=== PATIENT | male | born 1980 | race Caucasian/White ===

== ENCOUNTER 2019-09-04 14:20 | Outpatient (CLI) | payer BC, SELFPAY ==
[2019-09-04 21:12] LABS: Volume Semen 2 (2-5)
[2019-09-04 21:13] LABS: PH Semen 10 (7.0-8.0); Sperm Non-Progressive Motility 10 % (5-10); Sperm Progressive Motility 30 % (31-34); Viscosity Semen High Viscosity
[2019-09-04 21:14] LABS: Sperm Immotility 60 % (50-60); White Blood Count Semen 12 /hpf
[2019-09-04 22:08] LABS: Side 1 41
[2019-09-04 22:09] LABS: Side 2 38
[2019-09-04 22:48] LABS: Pathology Referral Yes
== END 2019-09-04 14:21 | disposition home or self-care (01) ==
LOC: LAB 14:23
PROVIDERS: PCP Nurse Practitioner; Visit Provider Obstetrics & Gynecology
DX: N46.9 Male infertility, unspecified (principal)
CPT/HCPCS: 80500; 89320

== ENCOUNTER → 2020-07-31 11:15 | Outpatient (BNVA) | payer OTHER, SELFPAY | PROVIDERS: PCP Nurse Practitioner; Visit Provider Surgery | DX: Z86.010 Personal history of colon polyps (principal) | CPT/HCPCS: 87635 ==

== ENCOUNTER 2020-08-06 07:05 | Day surgery (SDC) | payer OTHER, SELFPAY ==
[2020-08-02 10:52] VITALS: BMI 26.4
[2020-08-06 07:22] VITALS: BP 127/84; PULSE 88; RESP 16; TEMP 36.5; O2SAT 98
[2020-08-06] MEDS: sodium chloride 0.9% 1,000 ML 30 ML IV (07:31)
--- NOTE | 2020-08-06 08:06 | ANES.PREANE2 ---
Pre-Anesthetic Assessment Pre-Anesthetic Assessment: Height/Weight: Height 1.83 m Weight 88.451 kg Temp Pulse Resp BP Pulse Ox 97.7 F 88 16 127/84 98 08/06/20 07:22 08/06/20 07:22 08/06/20 07:22 08/06/20 07:22 08/06/20 07:22 Preop Diagnosis: diagnostic Proposed Procedure: Operation Date: 08/06/20 08:00 Proposed Procedures p Colonoscopy 58983 z86.010(Not Applicable) - Man Antonio MD Was Beta Mili taken within 24 hours: Yes Was Clonidine taken within 24 hours: N/A Last intake: Intake Last Liquid Date 08/05/20 Last Liquid Time 23:00 Last Solid Date 08/04/20 Last Solid Time 23:59 Social: Social History: Tobacco Exam: Pre-Anes Outpt Exam: alert, oriented x 3, clear to auscultation bilaterally and regular rate & rhythm Airway: Submandibular: WNL Cervical ROM: WNL MP: 2 Additional comments: some missing History/ROS: No significant history except as noted and No significant complaints Pulmonary: Pulmonary: None reported CV/HEM: CV/HEM: HTN : : None reported Hepatic: Hepatic: None reported GI: GI: None reported Metabolic: Comments: Hx pancreatitis Musc/skel: Musc/skel: None reported Neuropsych: Neuropsych: None reported Anesthetic Plan: ASA status: 2 Anesthesia: MAC Risk of > 500 ml blood loss (7ml/kg in children): No Meds/Allergies Current Medications: Current Medications Generic Name Dose Route Start Last Admin Trade Name Freq PRN Reason Stop Dose Admin Sodium Chloride 1,000 mls @ 30 ml s/hr 08/06/20 07:15 08/06/20 07:31 Sodium Chloride 0.9% IV 08/07/20 07:14 30 mls/hr .Q24H DONTA Administration PFSH Anesthesia PFSH: Medical History (Updated 07/16/20 @ 16:06 by Man Antonio MD) Chronic migraine History of colon polyps HTN, goal below 130/80 Mixed anxiety and depressive disorder Necrotizing pancreatitis Surgical History History of cholecystectomy History of colonoscopy 2018 Family History Other Asthma Hypertension Denies family history of Anesthesia complication Bleeding disorder Social History Smoking and tobacco status: current every day smoker Second hand smoke exposure: Yes Smoking risk assessment/counseling performed?: Yes Alcohol intake: never Desire information about alcohol rehabilitation?: No Counseling given: No Desire information about substance/drug rehabilitation?: No Counseling given: No Adopted: No Caregiver/support person: No Lives independently: Yes Household members: spouse Housing: House Marital status: Number of children: 0 service: No Current occupational status: employed Current occupation: [employer] History of recent travel: No Current gender identity: Male Data Anesthesia Cardiac Studies: No Data to Display
[2020-08-06 08:42] VITALS: BP 100/76; PULSE 83; RESP 20; TEMP 36.8; O2SAT 98
--- NOTE | 2020-08-06 08:44 | W.PM.OPSUD ---
Surgery/Procedure H&P Update DATE OF PROCEDURE: August 06, 2020 DATE H&P PERFORMED: 07/16/20 H&P UPDATE INFORMATION: I have reviewed H&P completed within last 30 days, I have examined patient prior to procedure and No changes to prior documentation PREOP DIAGNOSIS: diagnostic PLANNED PROCEDURE: Operation Date: 08/06/20 08:00 Proposed Procedures p Colonoscopy 97552 z86.010(Not Applicable) - Man Antonio MD
[2020-08-06 08:57] VITALS: BP 121/96; PULSE 74; RESP 16; TEMP 36.7; O2SAT 99
--- NOTE | 2020-08-06 12:04 | ANE.PACU2 ---
Inpatient post-anesthesia follow up: Airway intact: Yes Vital signs: Temperature 98.1 F Pulse Rate 74 Respiratory Rate 16 Blood Pressure 121/96 Pulse Oximetry 99 Oxygen Delivery Me thod Room Air Oxygen Flow Rate 3 Fraction of Inspir ed Oxygen Hydration adequate: Yes Nausea and vomiting: No Pain level: 2 Mental status: Baseline
== END 2020-08-06 09:20 | disposition home or self-care (01) ==
PROVIDERS: PCP Nurse Practitioner; Visit Provider Surgery
PROC: 0DJD8ZZ Inspection of Lower Intestinal Tract, Via Natural or Artificial Opening Endoscopic (ICD-10-PCS; CPT 45378; principal; 2020-08-06 08:00)
DX: Z86.010 Personal history of colon polyps (principal); F17.210 Nicotine dependence, cigarettes, uncomplicated; K52.9 Noninfective gastroenteritis and colitis, unspecified; K64.8 Other hemorrhoids; I10 Essential (primary) hypertension
CPT/HCPCS: 45378; 83630; 87493; 87506; 96360; 96361; J2704; J7030

== ENCOUNTER → 2020-11-05 11:46 | Outpatient (BNVA) | payer SELFPAY | PROVIDERS: PCP Nurse Practitioner; Visit Provider Dermatology | DX: Z01.89 Encounter for other specified special examinations (principal) ==

== ENCOUNTER → 2021-04-29 11:08 | Outpatient (BNVA) | payer SELFPAY | PROVIDERS: PCP Nurse Practitioner; Visit Provider Dermatology | DX: Z01.89 Encounter for other specified special examinations (principal) ==

== ENCOUNTER → 2021-10-28 10:38 | Outpatient (BNVA) | payer SELFPAY | PROVIDERS: PCP Nurse Practitioner; Visit Provider Dermatology | DX: Z01.89 Encounter for other specified special examinations (principal) ==

== ENCOUNTER → 2023-02-04 17:01 | Outpatient (BNVA) | payer OTHER, SELFPAY | PROVIDERS: PCP Nurse Practitioner; Visit Provider Nurse Practitioner | DX: I10 Essential (primary) hypertension (principal) | CPT/HCPCS: 80053; 80061 ==

== ENCOUNTER → 2023-08-03 16:58 | Outpatient (BNVA) | payer OTHER, SELFPAY | PROVIDERS: PCP Nurse Practitioner; Visit Provider Nurse Practitioner | DX: K85.91 Acute pancreatitis with uninfected necrosis, unspecified (principal); I10 Essential (primary) hypertension | CPT/HCPCS: 80053; 82150; 83690; 85025 ==

== ENCOUNTER → 2023-10-19 16:44 | Outpatient (BNVA) | payer OTHER, SELFPAY | PROVIDERS: PCP Nurse Practitioner; Visit Provider Nurse Practitioner | DX: I10 Essential (primary) hypertension (principal) | CPT/HCPCS: 80053; 80061 ==

== ENCOUNTER 2023-10-20 19:20 | Emergency (ER) | payer OTHER, SELFPAY ==
[2023-10-20 19:24] VITALS: BP 147/98; PULSE 78; RESP 22; TEMP 36.5; O2SAT 97
--- NOTE | 2023-10-20 20:17 | ED_ITS ---
HPI - Dizziness 2 General: Chief Complaint: Dizziness Stated Complaint: Joints Hurt\Dizzy Time Seen by Provider: 10/20/23 19:54 History of Present Illness: HPI Narrative: 43-year-old man who presents emergency r oom with feelings of agitation, dizziness, joint aches. He currently takes varenicline for smoking cessation. He was started on naltrexone daily apparently for OCD/ADHD. He says after taking it today he started having these feelings. He also is having some diarrhea. He appears to be having withdrawal symptoms. He says he does not take any other medications other than he started an jxfy-itb-peacpbo type medication yesterday as well. says that it has opioid properties when she lifted up. The medication was called [employer]m. And will have an opioid withdrawal syndrome Review of Systems 2 Narrative: Constitutional symptoms: Negative except as documented in HPI. Skin symptoms: Negative except as documented in HPI. Eye symptoms: Negative except as documented in HPI. ENMT symptoms: Negative except as documented in HPI. Respiratory symptoms: Negative except as documented in HPI. Cardiovascular symptoms: Negative except as documented in HPI. Gastrointestinal symptoms: Negative except as documented in HPI. Genitourinary symptoms: Negative except as documented in HPI. Musculoskeletal symptoms: Negative except as documented in HPI. Neurologic symptoms: Negative except as documented in HPI. Psychiatric symptoms: Negative except as documented in HPI. Endocrine symptoms: Negative except as documented in HPI. PFSH ED 2 PFSH: Medical History Necrotizing pancreatitis 2018 at [facility] History of colon polyps Chronic migraine HTN, goal below 130/80 Mixed anxiety and depressive disorder Surgical History History of cholecystectomy History of colonoscopy (08/06/20) 2018, 2020; due 2030 Family History Father Liver cancer Other Asthma Hypertension Denies family history of Anesthesia complication Bleeding disorder Social History Smoking and tobacco/nicotine status: current every day tobacco/nicotine user Second hand smoke exposure: Yes Alcohol intake: never Substance/Drug Use: unknown Adopted: No Caregiver/support person: No Lives independently: Yes Household members: spouse Housing: House Marital status: Number of children: 0 service: No Current occupational status: employed Current occupation: [employer] Do you think of yourself as: Straight/Heterosexual Current gender identity: Male Physical Exam 2 Narrative: EXAM NARRATIVE: General: Alert, no acute distress. Skin: Warm, dry. Head: Normocephalic, atraumatic. Neck: Supple, trachea midline. Eye: Extraocular movements are intact. Ears, nose, mouth and throat: mucosa moist. Cardiovascular: Regular, Normal peripheral perfusion. Respiratory: Lungs are clear to auscultation, respirations are non-labored, breath sounds are equal, Symmetrical chest wall expansion. Gastrointestinal: Soft, Nontender, Non distended, Normal bowel sounds. Musculoskeletal: Normal ROM, no deformity. Neurological: Alert and oriented, No focal neurological deficit observed. Psychiatric: Cooperative, patient appears quite agitated. He walks around the room and when he lays on the bed he kicks his legs around. Course 2 Vital Signs: Vital signs: Vital Signs Temperature 97.7 F 10/20/23 19:24 Pulse Rate 71 10/20/23 21:58 Respiratory Rate 16 10/20/23 20:38 Blood Pressure 147/98 10/20/23 19:24 Pulse Oximetry 98 10/20/23 21:58 Oxygen Delivery Me thod Room Air 10/20/23 21:58 MDM - Dizziness Medical Decision Making Medical decision making: Differential diagnosis including but not limited to and based on the above HPI, review of systems and physical exam: Make this most likely a reaction to the naltrexone. Perhaps interacting with the other medication he just started. Basic lab work and a urinalysis with a drug screen were ordered. Orders placed to evaluate differential diagnosis based on the above differential, HPI and physical exam Lab Review: Laboratory results were reviewed and interpreted by myself the emergency room physician. Lab work is unremarkable. Mild leukocytosis with a white count of 12. Hemoglobin is 14. BUN and creatinine are normal at 12 and 1.0. Urinalysis is negative and urine drug screen are negative. Alcohol level is negative. Kratom can have withdrawal symptoms similar to opioid withdrawal. Naloxone is of course normally used for opiate overdose. But also can be used for ADHD. I think it is going on today is a combination of the medication he is taken and what he is just prescribed. I reviewed the patient's medical record. Reexamination: Patient remains a little bit agitated so gave him some more Ativan and some Geodon. Hopefully can go home and sleep this off. Vitals are normal. Assessment and plan: Adverse medication reaction ?Normal saline bolus, Ativan x 2 1 mg doses. 20 mg IM Geodon. - Discharged home - Discussed plan with patient. Answered any questions. - Evaluation and treatment of this problem were appropriate in the emergency setting. Lab Data 10/20/23 20:21 10/20/23 20:21 Laboratory Results WBC 12.13 10^3/uL (3.29-11.43) H 10/20/23 20:21 RBC 4.74 10^6/uL (3.85-5.65) 10/20/23 20:21 Hgb 14.10 g/dL (11.27-16.99) 10/20/23 20:21 Hct 42.0 % (37-53) 10/20/23 20:21 MCV 88.6 fl (82-101) 10/20/23 20:21 MCH 29.7 pg (27-33) 10/20/23 20:21 MCHC 33.6 g/dL (30-55) 10/20/23 20:21 RDW 11.9 % (12.1-15.1) L 10/20/23 20:21 Plt Count 213 10^3/cmm (157-399) 10/20/23 20:21 MPV 9.6 fL (7.4-10.4) 10/20/23 20:21 Neut % (Auto) 67.7 % 10/20/23 20:21 Lymph % (Auto) 22.8 % 10/20/23 20:21 [place] % (Auto) 7.4 % 10/20/23 20:21 Eos % (Auto) 1.6 % 10/20/23 20:21 Baso % (Auto) 0.3 % 10/20/23 20:21 Neut # (Auto) 8.20 10^3/uL (1.8-7.7) H 10/20/23 20:21 Lymph # (Auto) 2.8 10^3/uL (0.8-4.8) 10/20/23 20:21 [place] # (Auto) 0.9 10^3/uL (0.2-0.9) 10/20/23 20:21 Eos # (Auto) 0.2 10^3/uL (0.0-0.8) 10/20/23 20:21 Baso # (Auto) 0.0 10^3/uL (0.0-0.1) 10/20/23 20:21 Nucleated RBC % (auto) 0 % 10/20/23 20:21 Nucleated RBCs # 0.0 /100WBC 10/20/23 20:21 Sodium 141 mmol/L (136-145) 10/20/23 20:21 Potassium 3.9 mmol/L (3.5-5.1) 10/20/23 20:21 Chloride 102 mmol/L (98-107) 10/20/23 20:21 Carbon Dioxide 27 mmol/L (22-29) 10/20/23 20:21 Anion Gap 15.9 (5-19) 10/20/23 20:21 BUN 12 mg/dL (6-20) 10/20/23 20:21 Creatinine 1.0 mg/dL (0.7-1.2) 10/20/23 20:21 GFR Calculation 82.3 mL/min (90-130) L 10/20/23 20:21 Glucose 80 mg/dL (65-115) 10/20/23 20:21 Calculated Osmolality 291 mOsm/kg (285-295) 10/20/23 20:21 Calcium 8.6 mg/dL (8.5-10.5) 10/20/23 20:21 Total Bilirubin 0.3 mg/dL (0.15-1.2) 10/20/23 20:21 AST 15 U/L (0-40) 10/20/23 20:21 ALT 13 U/L (0-41) 10/20/23 20:21 Alkaline Phosphatase 71 U/L (40-130) 10/20/23 20:21 Total Protein 7.4 g/dL (6.6-8.7) 10/20/23 20:21 Albumin 4.8 g/dL (3.5-5.2) 10/20/23 20:21 Globulin 2.6 g/dL (1.3-4.6) 10/20/23 20:21 Urine Color Yellow (Yellow) 10/20/23 21:08 Urine Appearance Clear (CLEAR) 10/20/23 21:08 Urine pH 9 (5-7) H 10/20/23 21:08 Ur Specific [place] 1.015 (1.005-1.030) 10/20/23 21:08 Urine Protein Neg (Negative) 10/20/23 21:08 Urine Glucose (UA) Norm (Normal) 10/20/23 21:08 Urine Ketones Negative (Negative) 10/20/23 21:08 Urine Blood Neg (Negative) 10/20/23 21:08 Urine Nitrate Negative (Negative) 10/20/23 21:08 Urine Bilirubin Neg (Negative) 10/20/23 21:08 Prot Sulfosalicylic Acd Negative (Negative) 10/20/23 21:08 Urine Urobilinogen Neg mg/dL (Negative) 10/20/23 21:08 Ur Leukocyte Esterase Negative (Negative) 10/20/23 21:08 Urine RBC 0-4 /hpf (0-2) H 10/20/23 21:08 Urine WBC None /hpf (0-5) 10/20/23 21:08 Ur Squamous Epith Cells None /hpf (0-5) 10/20/23 21:08 Amorphous Sediment Not Reportable 10/20/23 21:08 Urine Bacteria None /hpf (NONE) 10/20/23 21:08 Urine Opiates Screen Negative ng/mL (Negative) 10/20/23 21:08 Ur Barbiturates Screen Negative ng/mL (Negative) 10/20/23 21:08 Ur Phencyclidine Scrn Negative ng/mL (Negative) 10/20/23 21:08 Ur Amphetamines Screen Negative ng/mL (Negative) 10/20/23 21:08 U Benzodiazepines Scrn Negative ng/mL (Negative) 10/20/23 21:08 Urine Cocaine Screen Negative ng/mL (Negative) 10/20/23 21:08 U Marijuana (THC) Screen Negative ng/mL (Negative) 10/20/23 21:08 Ethyl Alcohol < 10 mg/dL (0-10) 10/20/23 20:21 No radiology studies performed this visit Discharge Plan Discharge Patient Disposition: Home Clinical Impression: Adverse drug reaction Qualifiers: Encounter type: initial encounter Qualified Code(s): T50.905A - Adverse effect of unspecified drugs, medicaments and biological substances, initial encounter Condition: Stable Prescriptions: No Action havhml-gpsxbnzl-fflopgw 6,000-19,000 -30,000 unit capsule,delayed release(DR/EC) 1 cap PO TID Qty: 250 0RF lisinopril 5 mg tablet 5 mg PO DAILY Qty: 30 2RF propranolol 60 mg tablet 60 mg PO TID Qty: 90 2RF guanfacine [Intuniv ER] 4 mg tablet extended release 24 hr 4 mg PO .at bedtime Qty: 30 2RF naltrexone 50 mg tablet 50 mg PO DAILY Qty: 30 2RF varenicline [Chantix] 1 mg tablet 1 mg PO BID Qty: 60 1RF Discharge Orders: Discharge ED (Routine); Ordered 10/20/23 Ordered By: Romy Bhakta Referrals: Amor Salinas, [facility] [Primary Care Provider] - Discharge Diet: Usual diet Discharge Activity: Increase activity as tolerated Patient Instructions: Adverse Drug Reaction (ED) Activity Restrictions/Additional Instructions: Please discuss this with your primary in the next few days. Thank you for choosing [facility] for your healthcare needs today. Please realize this is an emergency room and that we are providing you with a medical screening exam and this may not be complete and all inclusive of all the testing and or work up that you may need to determine your ailment or severity of your illness. You have been screened and evaluated and felt safe for discharge. Health conditions do change or evolve sometimes and as such it is important that you follow up with your Primary Doctor to be re checked, 3-5 days is a general good time frame for follow up. You are always welcome to return to the ED for re assessment if your symptoms are worsening or you have new concerns Coding Level of Care Code ED [employer] for Cara Santana
[2023-10-20] MEDS: sodium chloride 0.9% 1,000 ML 999 ML IV (20:23)
[2023-10-20] MEDS: LORazepam 2 mg/mL INJ 10 mL MDV 1 MG IV (20:24)
[2023-10-20 20:27] LABS: Basophils % 0.3 %; Eosinophils # 0.2 10^3/uL (0.0-0.8); Eosinophils % 1.6 %; Lymphocytes # 2.8 10^3/uL (0.8-4.8); Lymphocytes % 22.8 %; Mean Corpuscular HGB Conc 33.6 g/dL (30-55); Mean Corpuscular Hemoglobin 29.7 pg (27-33); Mean Corpuscular Volume 88.6 fl (82-101); Mean Platelet Volume 9.6 fL (7.4-10.4); Monocytes # 0.9 10^3/uL (0.2-0.9); Monocytes % 7.4 %; Neutrophils % 67.7 %; Nucleated Red Blood Cells % 0 %; Platelet Count 213 10^3/cmm (157-399); Red Blood Count 4.74 10^6/uL (3.85-5.65); Red Cell Distribution Width 11.9 % (12.1-15.1); White Blood Count 12.13 10^3/uL (3.29-11.43)
[2023-10-20 20:38] VITALS: PULSE 66; RESP 16; O2SAT 94
[2023-10-20 20:43] LABS: Alanine Aminotransferase 13 U/L (0-41); Albumin Level 4.8 g/dL (3.5-5.2); Alkaline Phosphatase 71 U/L (40-130); Anion Gap 15.9 (5-19); Aspartate Amino Transferase 15 U/L (0-40); Blood Urea Nitrogen 12 mg/dL (6-20); Calcium 8.6 mg/dL (8.5-10.5); Carbon Dioxide 27 mmol/L (22-29); Chloride 102 mmol/L (98-107); Creatinine Clr Calc Pharmacy 114.8147; Globulin 2.6 g/dL (1.3-4.6); Glomerular Filtration Rate 82.3 mL/min (90-130); Glucose 80 mg/dL (65-115); Osmolality Calculated 291 mOsm/kg (285-295); Potassium 3.9 mmol/L (3.5-5.1); Sodium 141 mmol/L (136-145); Total Bilirubin 0.3 mg/dL (0.15-1.2); Total Protein 7.4 g/dL (6.6-8.7)
[2023-10-20 20:44] LABS: Alcohol Level < 10 mg/dL (0-10)
[2023-10-20 21:09] VITALS: PULSE 74; O2SAT 98
[2023-10-20 21:22] LABS: Bilirubin Urine Neg (Negative); Blood Urine Neg (Negative); Glucose Urine UA Norm (Normal); Ketones Urine Negative (Negative); Leukocyte Esterase Urine Negative (Negative); Nitrate Urine Negative (Negative); Protein Urine Neg (Negative); RBC Urine 0-4 /hpf (0-2); Specific Gravity, Urine 1.015 (1.005-1.030); Sulfosalicylic Acid Urine Negative (Negative); Urine Appearance Clear (CLEAR); Urine Color Yellow (Yellow); Urobilinogen Urine Neg (Negative); pH Urine 9 (5-7)
[2023-10-20 21:23] LABS: Add Urine Culture? No; Amphetamines Screen Urine Negative (Negative); Barbiturates Screen Urine Negative (Negative); Benzodiazepines Screen Urine Negative (Negative); Cocaine Screen Urine Negative (Negative); Opiate Screen Urine Negative (Negative); PCP Screen Urine Negative (Negative); THC Screen Urine Negative (Negative)
[2023-10-20 21:58] VITALS: PULSE 71; O2SAT 98
[2023-10-20] MEDS: LORazepam 2 mg/mL INJ 10 mL MDV 1 MG IVP (22:08)
[2023-10-20] MEDS: water for injection-sterile 10 ML (22:09)
[2023-10-20] MEDS: ziprasidone 20 mg/mL SDV IM (22:09)
--- NOTE | 2023-10-20 22:43 | PC.NURSE ---
This nurse contacted [place] [facility] and spoke with BELKIS Glover at this time. BELKIS Glover stated to this nurse that she was concerned about the patient's consumption of naltrexone possibly putting the patient into withdrawal from the Kratom that the patient has consumed. BELKIS Glover stated that Kratom can cause agitation at loser doses, and opiate effects at higher doses. BELKIS Glover told this nurse that she would fax further information on all drug information to [facility] and followup on patient at a later time.
[2023-10-20] MEDS: LORazepam 2 mg/mL INJ 10 mL MDV IVP (23:04)
--- NOTE | 2023-10-20 23:12 | PC.NURSE ---
Care transferred to Ida RN at this time due to patient transferring from room 16 to room 9, caused by increased confusion and agitation. Patient was moved with all paperwork and belongings.
--- NOTE | 2023-10-20 23:22 | PC.NURSE ---
Patient's told this nurse that while patient was in room, patient had a fall and hit his head. Verbal order taken from Dr Bhakta to put in order for head CT. Order placed.
[2023-10-20 23:30] VITALS: PULSE 93; RESP 33; O2SAT 96
[2023-10-20] MEDS: haloperidol inj 5 mg/mL INJ 1 mL 10 MG IVP (23:57)
[2023-10-21] VITALS (11 sets, daily range): BP systolic 96–126; BP diastolic 48–88; PULSE 71–105; RESP 15–30; O2SAT 89–99
--- NOTE | 2023-10-21 00:45 | PC.NURSE ---
PT PLACED ON VIOLENT RESTRAINT BED WITH FOUR POINT RESTRAINTS. ABLE TO PLACE TWO FINGERS BETWEEN PT AND RESTRAINTS. CMS PRESENT IN ALL EXTREMITIES. VIOLENT RESTRAINT CHARTING STARTED.
[2023-10-21] MEDS: ketamine 100 mg/mL Inj 5 mL 90 MG IV (01:09)
--- NOTE | 2023-10-21 01:23 | PC.NURSE ---
WITHIN THIRTY SECONDS OF KETAMINE ADMINISTRATION, PT APPEARED SEDATED. WITHIN 10 MINUTE PT WAS AGITATED AGAIN. PT CONTINUES TO BE AGITATED, TRYING TO GET OUT OF RESTRAINTS, AND SPITTING ACROSS THE ROOM.
--- NOTE | 2023-10-21 02:00 | PC.NURSE ---
UPDATED ON PT CONDITION AND NEED TO INTUBATE. SHE VERBALIZED UNDERSTANDING.
--- NOTE | 2023-10-21 02:02 | PC.NURSE ---
PT MOVED TO ROOM 13 FOR INTUBATION.
--- NOTE | 2023-10-21 02:08 | PC.NURSE ---
PT INTERMITTENTLY SPEAKING COHERENTLY. PT ABLE TO TELL HIS NAME AND BIRTHDAY BUT NO OTHER INFORMATION. PT STARTS SPEAKING INCOHERENTLY AGAIN.
--- NOTE | 2023-10-21 02:20 | PC.NURSE ---
UPDATED ON PT CONDITION AND DR TEJADA NO LONGER FEELING THE NEED TO INTUBATE DUE TO PT IMPROVEMENT.
[2023-10-21] MEDS: LORazepam 2 mg/mL INJ 10 mL MDV IVP (02:33)
[2023-10-21] MEDS: HYDROmorphone 1 mg/mL INJ 1 mL IVP (02:49)
--- NOTE | 2023-10-21 03:34 | PC.NURSE ---
PT WAS LUCID ENOUGH TO ASK SITTER TO USE THE URINAL. HE ALSO FOLLOWED COMMANDS WHEN ASSISTED TO USE URINAL. PT WENT TO SLEEP DIRECTLY AFTERWARD.
--- NOTE | 2023-10-21 03:49 | PC.NURSE ---
LOWER EXTREMITY RESTRAINTS REMOVED TO SEE HOW PT DOES. DR TEJADA AWARE.
--- NOTE | 2023-10-21 03:52 | PC.NURSE ---
PT REMAINSS NON-COMBATIVE, UPPER EXTREMITY RESTRAINTS REMOVED FOR TRIAL.
--- NOTE | 2023-10-21 03:56 | PC.NURSE ---
PT REMAINS NON-COMBATIVE, SLEEPING PEACEFULLY WITHOUT FIDGETING NOW THAT HE CAN MOVE FREELY TO MAKE HIMSELF COMFORTABLE. IS UPDATED ON PT PROGRESS.
--- NOTE | 2023-10-21 05:11 | PC.NURSE ---
ATTEMPT MAKE TO WAKE UP PT. PT BECOMES AGITATED WITH ATTEMPT. PT ALLOWED TO GO BACK TO SLEEP. DR TEJADA MADE AWARE.
--- NOTE | 2023-10-21 08:47 | PC.NURSE ---
pt AOx4, completed ambulatory trial with no complications. pt states he feels tired but denies SOB, chest pain, anxiety. spouse at bedside.
== END 2023-10-21 08:56 | disposition home or self-care (01) ==
PROVIDERS: Emergency Provider Emergency Medicine; PCP Nurse Practitioner
DX: R42 Dizziness and giddiness (principal); T50.7X5A Adverse effect of analeptics and opioid receptor antagonists, initial encounter; I10 Essential (primary) hypertension; Z72.0 Tobacco use
CPT/HCPCS: 36415; 80053; 80306; 80307; 81001; 85025; 96361; 96372; 96374; 96375; 96376; 99284; J1170; J1630; J2060; J3486; J3490; J7030

== ENCOUNTER 2023-12-01 13:03 | Outpatient (CLI) | payer OTHER, SELFPAY ==
[2023-12-01] MEDS: iohexol 350 mg/mL 500 mL Btl (per mL) PO (13:28)
--- NOTE | 2023-12-01 14:00 | CT_ITS ---
WS: [id number] CT ABDOMEN PELVIS TECHNIQUE: Contrast-enhanced CT of the abdomen and pelvis with coronal and sagittal reformatted image s. CLINICAL INFORMATION: K85.91 - Acute pancreatitis with uninfected necrosis, uns... COMPARISON: CT 2019 DLP: 459.[address] scans at [facility] use at least one of these dose optimization techniques: automated e xposure control; mA and/or kV adjustment per patient size (includes targeted exams where dose is matc hed to clinical indication); or iterative reconstruction. FINDINGS: Mild diffuse fatty infiltration of the liver. Normal spleen. Normal GE junction. Rugal fold thickenin g in the stomach and proximal duodenum suspicious for gastroduodenitis. Normal caliber abdominal aorta. Celiac and SMA are patent. Normal portal vein and splenic vein. Adren al glands are normal. Normal renal parenchymal enhancement. No hydronephrosis. No pancreatitis or pancreatic necrosis today. 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 Small bladder cystocele. A few sigmoid diverticuli. Normal sigmoid colon. Moderate fecal retention in the transverse colon. Cecal constipation. Slight patchy micronodular opacity RIGHT lower lobe. Patchy infiltrates in the LEFT lower lobe along the fissure. Findings may be infectious or inflammatory. Recommend chest CT follow-up in 3 months. Re commend correlation for pneumonia. CT/CT abdomen pelvis w con* [id number] IMPRESSION: 1. Pancreas is normal in appearance today. No evidence of acute pancreatitis o r pancreatic necrosis. 2. 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 3. Prior cholecystectomy. 4. Mild diffuse fatty infiltration of the liver. Enlarged in the RIGHT hepatic lobe. 5. Suspected gastroduodenitis. 6. Patchy opacities in both lower lobes. Recommend CT chest 3-month follow-up and correlation for pneumonia. 7. No other acute findings.
[2023-12-01] MEDS: iohexol 350 mg/mL 500 mL Btl (per mL) IV (14:11)
== END 2023-12-01 13:04 | disposition home or self-care (01) ==
PROVIDERS: PCP Nurse Practitioner; Visit Provider Nurse Practitioner
DX: K85.91 Acute pancreatitis with uninfected necrosis, unspecified (principal); K52.9 Noninfective gastroenteritis and colitis, unspecified; Z90.49 Acquired absence of other specified parts of digestive tract; K76.0 Fatty (change of) liver, not elsewhere classified; R16.0 Hepatomegaly, not elsewhere classified; K59.00 Constipation, unspecified; R91.8 Other nonspecific abnormal finding of lung field; N32.89 Other specified disorders of bladder
CPT/HCPCS: 74177; Q9967

== ENCOUNTER 2024-01-04 11:52 | Day surgery (SDC) | payer OTHER, SELFPAY ==
[2024-01-04 12:10] VITALS: BP 133/75; PULSE 75; RESP 17; TEMP 36.1; O2SAT 99; BMI 24.4
--- NOTE | 2024-01-04 12:18 | ANES.PREANE2 ---
Pre-Anesthetic Assessment Height/Weight: Height 1.85 m Operation Date: 01/04/24 13:05 Proposed Procedures p EGD [id number], K29.90(Not Applicable) - Isrrael Keith MD Familial anesthetic complications: None Was Beta Mili taken within 24 hours: Yes Was Clonidine taken within 24 hours: N/A Last intake: > 8hrs Social Tobacco and No alcohol Exam alert, oriented x 3, clear to auscultation bilaterally and regular rate & rhythm Airway Mallampati: Class II Dentition: other (missing teeth) Pulmonary Sleep Apnea CV/HEM Hypertension GI Hx nec pancreatitis Anesthetic Plan ASA status: 2 Anesthesia: MAC Risk of > 500 ml blood loss (7ml/kg in children): No Medications/Allergies Home Medications Medication Instructions Recorded Confirmed Last Taken Type propranolol 60 mg tablet 60 mg PO TID #90 tabs 10/19/23 01/03/24 01/03/24 Rx pantoprazole 40 mg tablet,delayed 40 mg PO DAILY #30 tabs 12/01/23 01/03/24 01/03/24 Rx release (Protonix) cefdinir 300 mg capsule 300 mg PO BID 10 days #20 caps 12/22/23 01/03/24 01/03/24 Rx Allergies Allergy/AdvReac Type Severity Reaction Status Date / Time naltrexone Allergy Severe ADR-Halluci Verified 01/03/24 08:20 nating lorazepam [From Ativan] AdvReac ADR-Agitate Verified 01/03/24 08:20 d [facility] Anesthesia Medical History Necrotizing pancreatitis 2018 at [facility] History of colon polyps Chronic migraine HTN, goal below 130/80 Mixed anxiety and depressive disorder Surgical History History of cholecystectomy History of colonoscopy (08/06/20) 2017, 2020; due 2030 Family History Father Liver cancer Other Asthma Hypertension Denies family history of Anesthesia complication Bleeding disorder Social History (Updated 12/29/23 @ 14:[address]) Smoking and tobacco/nicotine status: current every day tobacco/nicotine user (education at departure) Second hand smoke exposure: Yes Alcohol intake: never Substance/Drug Use: unknown Adopted: No Caregiver/support person: No Lives independently: Yes Household members: spouse Housing: House Marital status: Number of children: 0 service: No Current occupational status: employed Current occupation: [employer] Do you think of yourself as: Straight/Heterosexual Current gender identity: Male Data Anesthesia Cardiac Studies: No Data to Display
[2024-01-04] MEDS: sodium chloride 0.9% 1,000 ML 30 ML IV (12:19)
--- NOTE | 2024-01-04 12:19 | W.PM.OPSUD ---
Surgery/Procedure H&P Update DATE OF PROCEDURE: January 04, 2024 DATE H&P PERFORMED: 12/29/23 H&P UPDATE INFORMATION: I have reviewed H&P completed within last 30 days, I have examined patient prior to procedure, No changes to prior documentation and H&[place] is in [facility] [place] on date indicated PLANNED PROCEDURE: Operation Date: 01/04/24 13:05 Proposed Procedures p EGD [id number], K29.90(Not Applicable) - Isrrael Keith MD
[2024-01-04 13:05] VITALS: BP 113/80; PULSE 79; RESP 18; TEMP 36.4; O2SAT 97
[2024-01-04 13:15] VITALS: BP 121/80; PULSE 70; RESP 18; O2SAT 100
--- NOTE | 2024-01-04 13:25 | ANE.PACU2 ---
Inpatient post-anesthesia follow up: Airway intact: Yes Vital signs: Temperature 97.6 F Pulse Rate 70 Respiratory Rate 18 Blood Pressure 121/80 Pulse Oximetry 100 Oxygen Delivery Me thod Room Air Oxygen Flow Rate Fraction of Inspir ed Oxygen Hydration adequate: Yes Nausea and vomiting: No Pain level: 1 Mental status: Baseline
== END 2024-01-04 13:28 | disposition home or self-care (01) ==
PROVIDERS: PCP Nurse Practitioner; Visit Provider Surgery
PROC: 0DJ08ZZ Inspection of Upper Intestinal Tract, Via Natural or Artificial Opening Endoscopic (ICD-10-PCS; CPT 43235; principal; 2024-01-04 13:05)
DX: K29.90 Gastroduodenitis, unspecified, without bleeding (principal); K29.50 Unspecified chronic gastritis without bleeding; G47.30 Sleep apnea, unspecified; I10 Essential (primary) hypertension; F17.200 Nicotine dependence, unspecified, uncomplicated
CPT/HCPCS: 43239; 88305; 88342; J2704; J7030

== ENCOUNTER → 2024-02-04 08:54 | Outpatient (BNVA) | payer OTHER, SELFPAY | PROVIDERS: PCP Nurse Practitioner; Visit Provider Nurse Practitioner | DX: I10 Essential (primary) hypertension (principal) | CPT/HCPCS: 80053; 80061 ==

== ENCOUNTER 2024-04-28 10:53 | Outpatient (CLI) | payer OTHER, SELFPAY ==
--- NOTE | 2024-04-28 11:00 | CT_ITS ---
WS: [id number] CT chest wo con [id number] HISTORY: R93.89 - Abnormal findings on diagnostic imaging of other... TECHNIQUE: Axial imaging performed through the thorax. Coronal and sagittal reformats are submitted. All CT scans at [facility] use at least one of these dose optimization techniques: automated exposure control; mA and/or kV adjustment per patient size (includes targeted exams where dose is mat ched to clinical indication); or iterative reconstruction. CONTRAST: None DLP: 475.20 mGy.cm COMPARISON: 12/01/2023 Lungs and central airway: Previously described opacifications at the lung bases have resolved since . There is a groundglass area of opacification towards the lingula. This location was not inc luded on the prior CT. This is typically seen with pneumonitis. Otherwise no additional mass or nodul e. No consolidation or pneumonia. Pleura: Normal. No pleural effusion. Heart and pericardium: Normal size heart with no pericardial effusion. Mediastinum and tameka: No adenopathy identified. Sensitivity is decreased without IV contrast. Increas ed soft tissue in the anterior mediastinum and a few small lymph nodes. Anterior mediastinal soft tis estevan is probably residual thymus. Vessels: Normal size aortic and pulmonary artery. No coronary artery calcifications. Chest wall and lower neck: No soft tissue masses. Upper abdomen: Prior cholecystectomy. No adrenal mass. Osseous structures: No destructive process. CT/CT chest wo con [id number] IMPRESSION: 1. Improved atelectasis at the lung bases compared to 12/01/2023. 2. Subsegmental groundglass opacification towards the lingula. This is most li bc an area of mild pneumonitis. 3. No adenopathy. 4. Normal size heart. 5. Prior cholecystectomy.
== END 2024-04-28 10:54 | disposition home or self-care (01) ==
LOC: RAD 10:54
PROVIDERS: PCP Nurse Practitioner; Visit Provider Nurse Practitioner
DX: R93.89 Abnormal findings on diagnostic imaging of other specified body structures (principal); J98.11 Atelectasis; Z90.49 Acquired absence of other specified parts of digestive tract; M79.89 Other specified soft tissue disorders
CPT/HCPCS: 71250

== ENCOUNTER → 2024-09-05 14:15 | Outpatient (BNVA) | payer OTHER, SELFPAY | PROVIDERS: PCP Nurse Practitioner Family; Visit Provider Nurse Practitioner Family | DX: I10 Essential (primary) hypertension (principal) | CPT/HCPCS: 80053; 80061; 84443; 85025 ==

== ENCOUNTER → 2024-12-14 14:23 | Outpatient (BNVA) | payer OTHER, SELFPAY | PROVIDERS: PCP Nurse Practitioner Family; Visit Provider Nurse Practitioner Family | DX: R61 Generalized hyperhidrosis (principal) | CPT/HCPCS: 80053; 85025 ==

== ENCOUNTER → 2024-12-26 14:59 | Outpatient (BNVA) | payer OTHER, SELFPAY | PROVIDERS: PCP Nurse Practitioner Family; Visit Provider Nurse Practitioner Family | DX: R61 Generalized hyperhidrosis (principal) | CPT/HCPCS: 84403 ==